=== PATIENT | male | born 2000 | race Caucasian/White ===

== ENCOUNTER 2023-07-10 14:12 | Emergency (ER) | payer OTHER ==
[~2023-07-10] VITALS: Ht 172.7 cm; Wt 59.0 kg
[2023-07-10 14:20] VITALS: BP 110/74; PULSE 65; RESP 18; TEMP 97.9; O2SAT 99
[2023-07-10] MEDS ORDERED: ACET-10509 PO (15:09)
[2023-07-10] MEDS ORDERED: IBUP-1842 PO (15:09)
[2023-07-10] MEDS ORDERED: BENZ-300 PO (15:09)
== END 2023-07-10 15:17 | disposition home or self-care (01) ==
LOC: MED 14:12
DX: J06.9 Acute upper respiratory infection, unspecified (principal); Z79.1 Long term (current) use of non-steroidal anti-inflammatories (NSAID); Z79.899 Other long term (current) drug therapy
CPT/HCPCS: 99282